=== PATIENT | male | born 1950 | race African-American/Black ===

== ENCOUNTER 2018-09-26 11:46 | Emergency (ER) | payer MEDICARE, MEDICAID ==
[~2018-09-26] VITALS: Ht 170.2 cm; Wt 63.5 kg
[~2018-09-26 11:46] MED LIST: ACETAMINOPHEN500 M3 ORAL; ADVAIR 250-501 EACH INH; FLOMAX0.4 MG PO; GENTAK5 ML BOTH EYES; LIPITOR10 MG PO; PLAVIX75 MG PO; ZESTRIL5 MG PO
[2018-09-26] MEDS ORDERED: Acetaminophen 500mg (ES) tab ORAL ONE (12:15)
--- NOTE | 2018-09-26 12:19 | Emergency Room Report ---
History of Present Illness General Chief Complaint: Sore Throat Source: Patient Present Illness HPI 68-year-old male with history of cardiac stent placement currently controlled with Plavix and aspirin here complaining of 2 days of a 6 out of 10 sore throat. Patient also reports swelling in her cervical lymph nodes. Denies fever and chills, cough and congestion. Denies ear pain. Has not taken medication for symptom relief. Denies abdominal pain, nausea vomiting. Patient is sitting comfortably and stable. Speaking in full sentences. Denies chest pain, shortness of breath, palpitation, headache and dizziness. Allergies: Coded Allergies: No Known Allergies (Unverified , 02/25/12) Patient History Past Medical History: see triage record Past Surgical History: unable to obtain Pertinent Family History: none Immunizations: UTD Reviewed Nursing Documentation: PMH: Agreed; PSxH: Agreed Nursing Documentation-PMH Past Medical History: No History, Except For Hx Cardiac Problems: Yes - HEP C, stents Hx Hypertension: Yes Hx COPD: Yes Hx Gastrointestinal Problems: Yes - tonsilitis, GERD Review of Systems All Other Systems: negative except mentioned in HPI Physical Exam Vital Signs Date Time Temp Pulse Resp B/P (MAP) Pulse Ox O2 Delivery O2 Flow Rate FiO2 09/26/18 11:59 98.8 87 18 147/87 (107) 96 Room Air Sp02 EP Interpretation: reviewed, normal General Appearance: normal inspection, well appearing Head: normocephalic Eyes: bilateral eye normal inspection, bilateral eye PERRL ENT: hearing grossly normal, no angioedema, normal voice, TMs + canals normal, uvula midline, tonsillar swelling, tonsillar exudate Neck: full range of motion, no meningismus, other - Anterior cervical lymphadenopathy Respiratory: normal inspection, chest non-tender, lungs clear, no rhonchi, no wheezing Cardiovascular #1: normal inspection, regular rate, rhythm, no murmur Gastrointestinal: normal inspection, non tender, soft Genitourinary: no CVA tenderness Musculoskeletal: normal inspection, back normal Neurologic: normal inspection, alert, oriented x3 Psychiatric: normal inspection, judgement/insight normal Skin: no rash Lymphatic: adenopathy - Anterior cervical Medical Decision Making PA Attestation All diagnoses and treatment plans were reviewed and discussed with my supervising physician Dr. Blum Diagnostic Impression: Primary Impression: Tonsillitis with exudate ER Course 68-year-old male with history of cardiac stent placement currently controlled with Plavix and aspirin here complaining of 2 days of a 6 out of 10 sore throat. Patient also reports swelling in her cervical lymph nodes. Denies fever and chills, cough and congestion. Denies ear pain. Has not taken medication for symptom relief. Denies abdominal pain, nausea vomiting. Patient is sitting comfortably and stable. Speaking in full sentences. Denies chest pain, shortness of breath, palpitation, headache and dizziness. Ddx considered but are not limited to: strep pharyngitis, URI, tonsillitis, peritonsillar abscess, influenza Vital signs: are WNL, pt. is afebrile H&PE are most consistent with: Tonsillitis with exudate ORDERS: Amoxicillin, Tylenol ED INTERVENTIONS: First dose of amoxicillin and Tylenol given today DISCHARGE: At this time pt. is stable for d/c to home. Will provide printed patient care instructions, and any necessary prescriptions. Care plan and follow up instructions have been discussed with the patient prior to discharge. Follow-up with her primary care provider if worsening symptoms return to the emergency room. Last Vital Signs Date Time Temp Pulse Resp B/P (MAP) Pulse Ox O2 Delivery O2 Flow Rate FiO2 09/26/18 11:59 98.8 87 18 147/87 (107) 96 Room Air Disposition: HOME, SELF-CARE Condition: Stable Scripts Acetaminophen* (TYLENOL EXTRA STRENGTH*) 500 Mg Tablet 500 MG ORAL Q8H PRN for Prn Headache/Temp > 101, #30 TAB 0 Refills Prov: Ashley Hebert 09/26/18 Amoxicillin* (AMOXIL*) 500 Mg Capsule 500 MG ORAL EVERY 12 HOURS for 10 Days, #20 CAP Prov: Ashley Hebert 09/26/18 Patient Instructions: Tonsillitis Additional Instructions: Follow-up with a primary care provider if worsening symptoms return to the emergency room Ashley Hebert Sep 26, 2018 12:19
[2018-09-26] MEDS ORDERED: AMOXICILLIN500 MG ORAL (12:20)
[2018-09-26] MEDS ORDERED: TYLENOL EXTRA500 MG ORAL (12:20)
[2018-09-26 12:32] VITALS: BP 147/87
--- NOTE | 2018-09-26 12:34 | NUR ---
ER DISCHARGE NOTE: Patient is cleared to be discharged per ERMD, pt is aox4, on room air, with stable vital signs. pt was given dc and prescription instructions, pt was able to verbalize understanding, pt id band removed without complications. pt is able to ambulate with steady gait. pt took all belongings.
== END 2018-09-26 12:34 | disposition home or self-care (01) ==
LOC: EMR 12:30
DX: J03.90 Acute tonsillitis, unspecified (principal); I10 Essential (primary) hypertension; J44.9 Chronic obstructive pulmonary disease, unspecified; B19.20 Unspecified viral hepatitis C without hepatic coma; Z79.01 Long term (current) use of anticoagulants; Z79.82 Long term (current) use of aspirin; Z95.5 Presence of coronary angioplasty implant and graft
CPT/HCPCS: 99282

== ENCOUNTER 2019-01-08 11:07 | Emergency (ER) | payer MEDICARE, MEDICAID ==
[~2019-01-08] VITALS: Ht 167.6 cm; Wt 63.5 kg
[~2019-01-08 11:07] MED LIST changes: +AMOXICILLIN500 MG ORAL; +TYLENOL EXTRA500 MG ORAL
[2019-01-08] MEDS ORDERED: LIPITOR10 MG ORAL (11:19)
--- NOTE | 2019-01-08 11:30 | NUR ---
ED Nurse Note: Patient complining of left Flank pain for several days (4-5days), have been taking medication to cover the pain but it has been unsuccesful, reports pain at 8/10 in admission, he is able to walk and talk with no distress or slurr noted,
[2019-01-08 11:40] VITALS: BP 124/76
[2019-01-08] MEDS ORDERED: Omnipaque-300 100ml vial INJ PRN (12:15)
[2019-01-08] MEDS ORDERED: Ketorolac 30mg Inj IV ONE (12:15)
--- NOTE | 2019-01-08 12:47 | Diagnostic Imaging Report ---
Indication: Reason For Exam: PAIN Technique: One view of the chest Comparison: 03/24/2010 Findings: As before, lungs are hyperinflated. Lungs and pleural spaces are clear. The heart size is normal. No significant interim change. Impression: No acute process COPD changes
[2019-01-08 13:10] LABS: APPEARANCE,URINE CLEAR; BILIRUBIN, URINE NEGATIVE (NEGATIVE); COLOR,URINE PALE YELLOW; GLUCOSE, URINE (UA) NEGATIVE (NEGATIVE); KETONES,URINE NEGATIVE (NEGATIVE); LEUKOCYTE ESTERASE ,URINE 1+ (NEGATIVE); NITRITE,URINE NEGATIVE (NEGATIVE); PH,URINE 7 (4.5-8.0); PROTEIN,URINE NEGATIVE (NEGATIVE); UROBILINOGEN,URINE NORMAL MG/DL (0.0-1.0)
[2019-01-08 13:12] LABS: BASOPHILS % (AUTO) 0.8 % (0.0-2.0); EOSINOPHILS % (AUTO) 1.4 % (0.0-3.0); HEMATOCRIT 45.4 % (42.0-52.0); HEMOGLOBIN 14.8 G/DL (14.2-18.0); MEAN CORPUSCULAR VOLUME 93 FL (80-99); MONOCYTES % (AUTO) 8.8 % (1.0-10.0); PLATELET COUNT 223 K/UL (150-450); RED CELL DISTRIBUTION WIDTH 12.5 % (11.6-14.8); WHITE BLOOD COUNT 5.9 K/UL (4.8-10.8)
[2019-01-08 13:19] LABS: ANION GAP 5 mmol/L (5-15); BLOOD UREA NITROGEN 10 mg/dL (7-18); CALCIUM 8.7 MG/DL (8.5-10.1); CARBON DIOXIDE 29 MMOL/L (21-32); CHLORIDE 104 MMOL/L (98-107); CREATININE 1.3 MG/DL (0.55-1.30); POTASSIUM 4.1 MMOL/L (3.5-5.1); SODIUM 138 MMOL/L (136-145)
[2019-01-08 13:24] LABS: ALANINE AMINOTRANSFERASE 21 U/L (12-78); ALBUMIN 4.1 G/DL (3.4-5.0); ALBUMIN/GLOBULIN RATIO 1.2 (1.0-2.7); ALKALINE PHOSPHATASE 53 U/L (46-116); ASPARTATE AMINO TRANSFERASE 24 U/L (15-37); BILIRUBIN,TOTAL 0.6 MG/DL (0.2-1.0); CREATINE KINASE 91 U/L (26-308)
--- NOTE | 2019-01-08 14:45 | Diagnostic Imaging Report ---
Clinical Indication: Abdominal pain on the left side, left flank pain x4 5 days Technique: No oral contrast utilized, per emergency room physician request IV administration nonionic contrast. Venous phase spiral acquisition obtained through the abdomen and pelvis. Multiplanar reconstructions were generated. Total dose length product mGycm. CTDIvol(s) mGy. Dose reduction achieved using automated exposure control Comparison: none Findings: Lack of enteric contrast limits assessment of the GI tract. The appendix is not definitely demonstrated, but no findings to suggest acute appendicitis are evident. There is no evidence of colonic diverticulosis or diverticulitis. No small bowel distention. No free or loculated intraperitoneal gas or fluid is evident. The distal esophagus, stomach, duodenum are unremarkable. The liver, gallbladder, bile ducts, pancreas, spleen, adrenals, kidneys are unremarkable. No retroperitoneal or mesenteric mass or adenopathy. No pelvic mass or adenopathy. The bladder is distended. The included lung bases demonstrate subpleural blebs and bullous changes as well as generalized hyperinflation. The bones demonstrate mild degenerative spondylosis changes. Impression: Limited assessment of the GI tract, due to lack of enteric contrast administration No definite acute abnormality Basilar pulmonary parenchymal changes consistent with COPD The CT scanner at [facility] is accredited by the [employer] and the scans are performed using protocols designed to limit radiation exposure to as low as reasonably achievable to attain images of sufficient resolution adequate for diagnostic evaluation.
--- NOTE | 2019-01-08 14:52 | Emergency Room Report ---
History of Present Illness General Chief Complaint: Pain Source: Patient Present Illness HPI 68-year-old male with history of COPD and alcohol abuse here complaining of left flank pain that started yesterday. Denies urinary symptoms, pain radiation to the pubic area, blood in urine. Has not taken medication for symptom relief. Denies fall or injury. Denies heavy lifting. Has stable vital signs. Reports that he usually does not drink water and drinks beer instead. Denies any alcohol intake today. Denies chest pain, shortness of breath, palpitation, nausea vomiting, and other associated symptoms. Patient was signed out to me by Dr. Rush at 12PM. Allergies: Coded Allergies: No Known Allergies (Unverified , 02/25/12) Patient History Past Medical History: see triage record Past Surgical History: unable to obtain Pertinent Family History: none Social History: Reports: smoking, alcohol use Immunizations: UTD Reviewed Nursing Documentation: PMH: Agreed; PSxH: Agreed Nursing Documentation-PMH Past Medical History: No History, Except For Hx Cardiac Problems: Yes - HEP C, stents Hx Hypertension: Yes Hx COPD: Yes Hx Gastrointestinal Problems: Yes - tonsilitis, GERD Review of Systems All Other Systems: negative except mentioned in HPI Physical Exam Vital Signs Date Time Temp Pulse Resp B/P (MAP) Pulse Ox O2 Delivery O2 Flow Rate FiO2 01/08/19 11:14 98.1 93 17 113/73 (86) 93 Room Air Sp02 EP Interpretation: reviewed, normal General Appearance: no apparent distress, alert, GCS 15, non-toxic Head: normocephalic, atraumatic Eyes: bilateral eye normal inspection, bilateral eye PERRL ENT: hearing grossly normal, normal pharynx, no angioedema, normal voice Neck: full range of motion, supple/symm/no masses Respiratory: chest non-tender, lungs clear, normal breath sounds, no rhonchi, speaking full sentences Cardiovascular #1: regular rate, rhythm, no edema, no murmur, normal capillary refill Gastrointestinal: normal bowel sounds, non tender, soft, non-distended, no guarding, no rebound Genitourinary: no CVA tenderness Musculoskeletal: back normal, digits/nails normal, gait/station normal, non- tender, no calf tenderness, pelvis stable Neurologic: alert, oriented x3, responsive, motor strength/tone normal, sensory intact, speech normal Psychiatric: judgement/insight normal, memory normal, mood/affect normal, no suicidal/homicidal ideation Skin: no rash Lymphatic: no adenopathy Medical Decision Making PA Attestation All my diagnosis and treatment plans were reviewed ad discussed with my supervising physician Dr. Rush Diagnostic Impression: Primary Impression: COPD (chronic obstructive pulmonary disease) Additional Impression: Lumbar strain ER Course 68-year-old male with history of COPD and alcohol abuse here complaining of left flank pain that started yesterday. Denies urinary symptoms, pain radiation to the pubic area, blood in urine. Has not taken medication for symptom relief. Denies fall or injury. Denies heavy lifting. Has stable vital signs. Reports that he usually does not drink water and drinks beer instead. Denies any alcohol intake today. Denies chest pain, shortness of breath, palpitation, nausea vomiting, and other associated symptoms. Patient was signed out to me by Dr. Rush at 12PM. Ddx considered but are not limited to: Lumbar spine sprain, strain, fracture, contusion, neuropathy, pyelonephritis, UTI, renal stone Vital signs: are WNL, pt. is afebrile H&PE are most consistent with: Lumbar strain, COPD ORDERS: Abdominal pain order set, abdominal CT scan with contrast, lidocaine patch, Motrin ER intervention: NS bolus, Toradol, Zofran DISCHARGE: At this time pt. is stable for d/c to home. Will provide printed patient care instructions, and any necessary prescriptions. Care plan and follow up instructions have been discussed with the patient prior to discharge patient to follow-up with a primary care provider at this time no signs of pyelonephritis or renal stone noted patient does not have a urinary tract infection. Most likely symptoms are secondary to lumbar sprain versus strain. However do return to emergency room with worsening symptoms. Avoid drinking alcohol and drink water instead. EKG Diagnostic Results Rate: normal Rhythm: NSR ST Segments: no acute changes Other Impression No acute ST changes Chest X-Ray Diagnostic Results Chest X-Ray Diagnostic Results : Chest X-Ray Ordered: Yes # of Views/Limited/Complete: 1 View Indication: Other PA Xray: Interpretation reviewed, by supervising MD, and agrees with findings. Interpretation: no consolidation, no effusion, no pneumothorax Impression: No acute disease Electronically Signed by: Ashley Cooper PA-C PA Scribe Text No changes noted in COPD CT/MRI/US Diagnostic Results CT/MRI/US Diagnostic Results : Imaging Test Ordered: CT abd pelvis with contrast Impression Within normal limits Last Vital Signs Date Time Temp Pulse Resp B/P (MAP) Pulse Ox O2 Delivery O2 Flow Rate FiO2 01/08/19 11:40 98.0 85 23 124/76 96 Room Air Disposition: HOME, SELF-CARE Condition: Stable Scripts Ibuprofen* (MOTRIN*) 600 Mg Tablet 600 MG ORAL Q8H PRN for For Pain, #30 TAB 0 Refills Prov: Ashley Hebert 01/08/19 Lidocaine Patch* (Lidoderm Patch*) 1 Each Adh..patch 1 PATCH TOPIC DAILY, #7 PATCH 0 Refills Patch(es) may remain in place for up to 12 hours in any 24-hour period. Prov: Ashley Hebert 01/08/19 Referrals: NON PHYSICIAN (PCP) Patient Instructions: Chronic Obstructive Pulmonary Disease, Lumbosacral Strain Additional Instructions: Follow-up with your primary care physician, avoid drinking alcohol, increase oral hydration if worsening symptoms return to the emergency room Ashley Hebert Jan 08, 2019 14:52
[2019-01-08] MEDS ORDERED: LIDODERM700 M1 TOPIC (15:08)
[2019-01-08] MEDS ORDERED: IBUPROFEN600 MG ORAL (15:08)
[2019-01-08 15:20] VITALS: BP 131/80
--- NOTE | 2019-01-08 15:20 | NUR ---
ER DISCHARGE NOTE: Patient is cleared to be discharged per ERMD, pt is aox4, on room air, with stable vital signs. pt was given dc and prescription instructions, pt was able to verbalize understanding, pt id band and iv site removed without complications. pt is able to ambulate with steady gait. pt took all belongings.
--- NOTE | 2019-01-10 14:01 | Cardiology Report ---
APPROVED REPORT EKG Measurement Heart [id number] Sinus tachycardia with 2nd degree AV block with 2:[address] and T wave abnormality Abnormal ECG
== END 2019-01-08 15:20 | disposition home or self-care (01) ==
LOC: EMR 12:05
DX: S39.012A Strain of muscle, fascia and tendon of lower back, initial encounter (principal); I10 Essential (primary) hypertension; J44.9 Chronic obstructive pulmonary disease, unspecified; K21.9 Gastro-esophageal reflux disease without esophagitis; B19.20 Unspecified viral hepatitis C without hepatic coma; R10.9 Unspecified abdominal pain; R07.9 Chest pain, unspecified; X58.XXXA Exposure to other specified factors, initial encounter; Y92.9 Unspecified place or not applicable
CPT/HCPCS: 36415; 71045; 74177; 80053; 80307; 81003; 82550; 83690; 84484; 85025; 85610; 85730; 86850; 86900; 86901; 93005; 96361; 96374; 96375; 99284; J1885; J2405; J7030; Q9967